=== PATIENT | female | born 1990 | race Caucasian/White ===

== ENCOUNTER 2016-09-15 11:06 | Emergency (ER) | payer OTHER ==
[~2016-09-15] VITALS: Ht 170.2 cm; Wt 90.0 kg
[2016-09-15 11:08] VITALS: BP 137/88; PULSE 68; RESP 20; TEMP 98.7; O2SAT 100
[2016-09-15] MEDS ORDERED: IBUP800T23 PO (11:43)
[2016-09-15] MEDS ORDERED: AMOX500C PO (11:43)
[2016-09-15] MEDS ORDERED: PERI0.126 SWISH-SPIT (11:43)
--- NOTE | 2016-09-15 11:43 | PD ---
HPI Chief Complaint: Oral / Dental Pain or Problem Time Seen by Provider: 11:41 Travel History International Travel<30 days: No Contact w/Intl Traveler<30days: No Traveled to known affect area: No History of Present Illness HPI 26-year-old female presents to emergency Department with complaint of left upper tooth pain that started yesterday. Denies dental trauma. Denies fever or vomiting. Denies facial edema. Says it feels like her gums are swollen. Is taking Tylenol with no relief pain. Allergies to Imitrex and Rocephin. Has no other medical complaints. No other modifying factors or associated signs and symptoms. PFSH Past Medical History ?: Not Social History Tobacco Use: No Allergies-Medications (Allergen,Severity, Reaction): Coded Allergies: Imitrex (Verified Allergy, Severe, 09/15/16) Rocephin (Verified Allergy, Severe, Anaphylaxis, 09/15/16) Reported Meds & Prescriptions Reported Meds & Active Scripts Active Peridex Liq (Chlorhexidine Gluconate (Mouth) Liq) 0.12% Soln 15 Ml SWISH-SPIT BID 10 Days Amoxicillin 500 Mg Cap 500 Mg PO BID 10 Days Ibuprofen 800 Mg Tab 800 Mg PO Q6HR PRN Review of Systems Except as stated in HPI: all other systems reviewed are Neg Physical Exam Narrative GENERAL: Well-nourished, well-developed female patient, in no acute distress; afebrile, nontoxic-appearing SKIN: Warm and dry. HEAD: Atraumatic. Normocephalic. No facial edema, erythema, tenderness on palpation. No lymphadenopathy. EYES: Pupils equal and round. No scleral icterus. No injection or drainage. ENT: Mucosa pink and moist. Airway patent. MOUTH: Mucous membranes moist, no lesions, tongue and gums appear normal. Patient wears a bridge and is missing tooth #9 and 10. Tooth #12 with tenderness on palpation. Surrounding gingiva is without erythema, edema, drainage. No obvious abscess noted. NECK: Trachea midline. No lymphadenopathy. CARDIOVASCULAR: Regular rate. RESPIRATORY: No accessory muscle use. GASTROINTESTINAL: Rounded. MUSCULOSKELETAL: No obvious deformities. No clubbing. No cyanosis. No edema. NEUROLOGICAL: Awake and alert. Oriented 3. No obvious cranial nerve deficits. Motor grossly within normal limits. Normal speech. PSYCHIATRIC: Appropriate mood and affect; insight and judgment normal. Data Data Last Documented VS Vital Signs Date Time Temp Pulse Resp B/P Pulse Ox O2 Delivery O2 Flow Rate FiO2 09/15/16 11:08 98.7 68 20 137/88 100 Room Air Orders Ibuprofen (Motrin) (09/15/16 12:00) [facility] Medical Decision Making Medical Screen Exam Complete: Yes Emergency Medical Condition: Yes Medical Record Reviewed: Yes Differential Diagnosis Dental abscess, dentalgia, infected dental caries, gingivitis Narrative Course 26-year-old female with dentalgia at tooth #12. Patient is afebrile and nontoxic-appearing. No facial edema or erythema. No lymphadenopathy. Denies fever, vomiting. Ibuprofen administered in the ER. Emergency dental information sheet provided. Amoxicillin, Magic mouthwash, ibuprofen prescribed for home. Patient verbalizes understanding and agreement with treatment plan. Patient is medically cleared and stable for discharge. Discussed reasons to return to the emergency department. Instructed patient to follow up with primary care provider. Patient agrees with treatment plan. The patients vital signs are stable and the patient is stable for outpatient follow-up and treatment. Patient discharged home, stable and in no acute distress. Diagnosis Primary Impression: Dentalgia Referrals: Dentist Primary Care Physician Patient Instructions: Dental Abscess (ED), Dental Caries (ED), General Instructions, Gingivitis (ED), Toothache (ED) Departure Forms: Tests/Procedures, Work Release Enter return to work date: September 17, 2016 Additional Instructions: Complete full course of antibiotics Ibuprofen or Tylenol as directed and as needed to reduce pain and inflammation Use Magic mouthwash rinse as directed and as needed to decrease pain Use Peridex as directed for oral hygiene Warm or cool compresses to the affected area Follow-up with dentist Follow-up with primary care provider Return to emergency department immediately with worsening of symptoms Med/Other Pt SpecificInfo: Prescription(s) given Scripts Chlorhexidine Gluconate (Mouth) Liq (Peridex Liq)0.12% Soln15 Ml SWISH-SPIT BID 10 Days Ref 0 Prov:Mely MalaveP 09/15/16 Amoxicillin 500 Mg Bwf450 Mg PO BID 10 Days Ref 0 Prov:Mely MalaveP 09/15/16 Ibuprofen 800 Mg [id number] Mg PO Q6HR PRN (PAIN) #30 TAB Ref 0 Prov:Mely MalaveP 09/15/16 Disposition: 01 DISCHARGE HOME Condition: Stable Mely Malave September 15, 2016 11:43
[2016-09-15] MEDS ORDERED: IBUPROFEN 800 MG TAB PO ONE (12:00)
== END 2016-09-15 12:14 | disposition home or self-care (01) ==
LOC: EDSEX → NEPK 11:06
DX: K08.89 Other specified disorders of teeth and supporting structures (principal)
CPT/HCPCS: 99284